=== PATIENT | female | born 2000 | race African-American/Black ===

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

== ENCOUNTER 2020-02-05 22:12 | Emergency (ER) | payer MEDICAID ==
[~2020-02-05] VITALS: Ht 162.6 cm; Wt 64.4 kg
[2020-02-05 22:14] VITALS: Ht 162.6 cm; Wt 64.4 kg
[2020-02-05 23:54] LABS: UA SPECIFIC GRAVITY 1.025 (1.005-1.035); microscopic required? YES; urine erythrocyte NEGATIVE (NEGATIVE)
[2020-02-06 00:23] LABS: BASOPHIL % 0.6 % (0-2); PLATELET COUNT 218 x10^3mcL (130-400)
[2020-02-06 00:30] LABS: CALCIUM 8.5 mg/dL (8.5-10.1); CHLORIDE SERUM 103 mmol/L (98-107); CREATININE SERUM 0.6 mg/dL (0.6-1.0); GFR1 > 60 mL/min; GLUCOSE SERUM 92 mg/dL (74-106); POTASSIUM SERUM 3.4 mmol/L (3.5-5.1); SODIUM SERUM 136 mmol/L (136-145)
[2020-02-06 00:34] LABS: ALKALINE PHOSPHATASE 77 U/L (46-116); ALT/SGPT 13 U/L (14-59); AST/SGOT 15 U/L (15-37); BILIRUBIN TOTAL 0.2 mg/dL (0.20-1.00); TOTAL PROTEIN, SERUM 6.8 g/dL (6.4-8.2)
[2020-02-06 00:44] LABS: ALBUMIN 3.1 g/dL (3.4-5.0)
[2020-02-06 05:32] VITALS: BP 102/54
== END 2020-02-06 05:32 | disposition short-term general hospital (02) ==
LOC: ED 22:12
PROVIDERS: Emergency Medicine
DX: O23.13 Infections of bladder in pregnancy, third trimester (principal); I10 Essential (primary) hypertension; Z3A.33 33 weeks gestation of pregnancy
CPT/HCPCS: J0696; J2765; J7060